=== PATIENT | male | born 2000 | race Caucasian/White ===

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

== ENCOUNTER → 2020-01-12 | Outpatient (CLI) | payer OTHER | LOC: COL.PUL 11:00 | DX: R06.02 Shortness of breath (principal); R06.2 Wheezing | CPT/HCPCS: J7674 ==

== ENCOUNTER 2021-11-14 15:42 | Emergency (ER) | payer BC ==
[~2021-11-14] VITALS: Ht 190.5 cm; Wt 76.8 kg
[2021-11-14 16:17] VITALS: BP 134/81; TEMP 98
[2021-11-14 17:50] LABS: BASO % 0.4 % (0.0-2.0); GRAN # 7.6 K/mm3 (1.4-6.5); GRAN % 84.3 % (42.2-75.2); HEMOGLOBIN 13.9 g/dl (13.5-18.0); LYMPH # 1.1 K/mm3 (1.2-3.4); MEAN CELL VOLUME 84 fl (80.0-100.0); MEAN CORPUSCULAR HEMOGLOBIN 28 pg (27-31); MEAN CORPUSCULAR HGB CONC 34 g/dl (33.0-37.0); MEAN PLATELET VOLUME 9.9 fl (7.4-10.4); MONO # 0.3 K/mm3 (0.1-0.6); PLATELET COUNT 277 K/mm3 (130-400); REDCELL DISTRIBUTION WIDTH-CV 12.6 % (11.5-14.5)
[2021-11-14 18:06] LABS: ALBUMIN 4.3 gm/dL (3.5-5.0); BILIRUBIN,TOTAL 0.7 mg/dL (0.2-1.2); CALCIUM 9.3 mg/dL (8.4-10.2); CREATININE, serum 0.76 mg/dL (0.72-1.25); POTASSIUM 4.1 mmol/L (3.5-4.5)
[2021-11-14 18:26] LABS: TSH w REFLEX 0.468 uIU/mL (0.350-4.940)
[2021-11-14 19:29] VITALS: PULSE 91
== END 2021-11-14 19:30 | disposition home or self-care (01) ==
LOC: COL.ER 15:42
PROVIDERS: Physician Assistant
DX: R51.9 Headache, unspecified (principal); R00.2 Palpitations; R06.02 Shortness of breath; J32.9 Chronic sinusitis, unspecified; Z79.52 Long term (current) use of systemic steroids